=== PATIENT | male | born 1960 | race Caucasian/White ===

== ENCOUNTER 2022-06-14 10:29 | Inpatient (IN) | payer OTHER, SELFPAY ==
[2022-06-14] VITALS (14 sets, daily range): BP systolic 123–174; BP diastolic 54–121; PULSE 84–118; RESP 18–28; TEMP 36.5–37.5; O2SAT 91–94; BMI 31.2; BMI 36.4
--- NOTE | 2022-06-14 11:34 | CRLHL7_ITS ---
For Patients: As a result of the Century Cures Act, medical imaging exams and procedure reports are released immediately into your electronic medical record. You may view this report before your referring provider. If you have questions, please contact your health care provider. INDICATION: Dyspnea. TECHNIQUE: Chest 1 view. COMPARISON: None. FINDINGS: No focal consolidation, pleural effusion, or pneumothorax. Normal heart size and pulmonary vascularity. There is a 2.6 cm ovoid nodular opacity in the right hilum. Chronic appearing fracture of the left posterior 7th rib. IMPRESSION: 1. No acute cardiopulmonary findings. 2. Indeterminate 2.6 cm nodular opacity in the right hilum. This could be further evaluated with CT of the chest. Dictated by Janette Waddell MD @ 06/14/2022 12:50:53 PM (Electronically Signed)
--- NOTE | 2022-06-14 11:37 | ED.WEAKNESS ---
HPI - Weakness General Chief complaint: Weakness Stated complaint: Fall, right leg injury Time Seen by Provider: 06/14/22 11:23 History of Present Illness HPI Narrative: 61-year-old man presenting to the emergency department accompanied by his . Concern of increasing weakness and possible skin infection. History of the a cares. Three days ago started feeling unwell. Did vomit. Had diarrheal episode as well. Sounds like that has all past. He still has no appetite. Fell out of bed a few nights ago but did not sustain any injuries. Does have a history of COPD apparently and has not been using his nebulizations regularly. Denies a history of heart failure. Does have however venous stasis ulcers and receives home care for this. Due to progressive redness in his right leg in particular was recommended to be seen. I note him also to be tachycardic on initial exam. Denies a history of arrhythmias. No fevers here recently. No cough or cold symptoms. No abdominal pain. On exam I note him to resist exam little bit he says is always a little sensitive like that. Medications in the list provided by Mr. Woods include Pregabalin [id number] acid slab stripper Chlorthalidone Allergy med [id number] Latanoprost drops Acetaminophen Albuterol Wixela Related Data Home Medications Medication Instructions Recorded Confirmed acetaminophen 500 mg tablet 1,000 mg PO BID 06/14/22 06/14/22 albuterol sulfate 90 mcg/actuation 2 inh inhalation Q6H PRN 06/14/22 06/14/22 aerosol inhaler (Proventil HFA) chlorthalidone 25 mg tablet 12.5 mg PO DAILY 06/14/22 06/14/22 famotidine 10 mg tablet (Acid 10 mg PO BID 06/14/22 06/14/22 Controller) fluticasone 250 mcg-salmeterol 50 1 inh inhalation BID 06/14/22 06/14/22 mcg/dose blistr powdr for inhalation (Advair Diskus) latanoprost 0.005 % eye drops 1 drp ophthalmic (eye) HS 06/14/22 06/14/22 loratadine 10 mg tablet 10 mg PO DAILY 06/14/22 06/14/22 (Allerclear) pregabalin 75 mg capsule 75 - 150 mg PO BID 06/14/22 06/14/22 Allergies Allergy/AdvReac Type Severity Reaction Status Date / Time No Known Drug Allergies Allergy Verified 06/14/22 10:56 Review of Systems Status of ROS: Reports: 10 or more systems reviewed and unremarkable except as noted in History and below [facility] Medical History Chronic obstructive pulmonary disease Chronic pain due to injury Chronic venous hypertension w/ulcer and inflammation involv both sides Chronic venous insufficiency of lower extremity Gastroesophageal reflux disease History of tobacco use Hypertension Obesity Physical debility Skin graft rejection Surgical History History of appendectomy Family History Mother Diabetes Alcohol abuse Father Diabetes Heart attack Social History Highest level of school completed/degree received: GED or equivalent Smoking Status: Former smoker What tobacco products do you use: cigarettes Years smoked: 50 Smoking quit date/years: <= 15 years ago Do you use any of these nicotine containing products: None Second hand tobacco smoke exposure: Yes How often do you have a drink containing alcohol: monthly or less How many standard drinks containing alcohol do you have on a typical day: 1 or 2 How often do you have six or more drinks on one occasion: Never AUDIT-C Alcohol total score: 1 Non-prescribed substance use: denies use Caffeine: Yes (5 cokes a day) service: Yes Exam Narrative: Exam Narrative: Is pleasant. Fully alert. Appears tired. Mildly labored in his breathing. A little tachypneic as well. Head is atraumatic. Cranial nerves 2-12 intact. Oropharynx is sticky. Edentulous. Neck is supple without LA. no JVD Lungs with trace end-expiratory wheezing most audible in the right mid lung field. Good air movement throughout. Cardiovascular is tachycardic appears to be regular on auscultation a little distant. On monitor as I am examining him though AFib alert is going off. His rapid in the 1 teens Abdomen is overweight soft nontender though seems diffusely mildly sensitive-sounds like this is a chronic situation. No masses appreciated Extremities with changes consistent with venous stasis. Large ulcerations bilaterally with foam dressings in place and gauze wrap around that. There is erythema broadly over his right lower leg extending past the knee. Is sensitive to palpation. Present calor. Not so much induration. Const: Vital Signs, click to edit/add: Vital Signs - 24 hr 06/14/22 10:57 06/14/22 12:36 06/14/22 12:37 Temperature 97.9 F Pulse Rate 85 95 Pulse Rate [Pulse Oximeter] 98 Pulse Rate [Right Pulse Oximeter] Respiratory Rate 28 H Blood Pressure 132/72 Blood Pressure [Le ft Arm] Blood Pressure [Ri ght Upper Arm] 149/62 H Pulse Oximetry 91 91 91 Oxygen Delivery Me thod Room Air 06/14/22 13:00 06/14/22 13:02 06/14/22 13:30 Temperature Pulse Rate 84 88 89 Pulse Rate [Pulse Oximeter] Pulse Rate [Right Pulse Oximeter] Respiratory Rate Blood Pressure 149/79 H Blood Pressure [Le ft Arm] Blood Pressure [Ri ght Upper Arm] Pulse Oximetry 94 93 91 Oxygen Delivery Me thod 06/14/22 13:32 06/14/22 14:18 06/14/22 14:35 Temperature 97.7 F Pulse Rate 94 Pulse Rate [Pulse Oximeter] Pulse Rate [Right Pulse Oximeter] 88 Respiratory Rate 22 22 Blood Pressure 140/76 H Blood Pressure [Le ft Arm] 123/80 Blood Pressure [Ri ght Upper Arm] Pulse Oximetry 91 93 93 Oxygen Delivery Me thod Room Air Room Air 06/14/22 15:00 Temperature Pulse Rate Pulse Rate [Pulse Oximeter] Pulse Rate [Right Pulse Oximeter] Respiratory Rate 22 Blood Pressure Blood Pressure [Le ft Arm] Blood Pressure [Ri ght Upper Arm] Pulse Oximetry Oxygen Delivery Me thod Documenting provider has reviewed patient's vital signs: yes Course Course Hospital Course: Will be initiating IVs and blood cultures obtained. Primary suspicion is cellulitis with potential sepsis. Possible new onset AFib with RVR. Pending EKG. I would anticipate admission at this point. Reevaluation(s) Reevaluation #1: EKG actually with a sinus tachycardia. See below. Vital Signs Vital signs: Initial Vital Signs Temperature 97.9 F 06/14/22 10:57 Temperature Source Temporal Artery Scan 06/14/22 10:57 Pulse Rate 98 06/14/22 10:57 Pulse Rhythm 06/14/22 10:57 Respiratory Rate 28 H 06/14/22 10:57 Blood Pressure 149/62 H 06/14/22 10:57 Blood Pressure Mean 91 06/14/22 10:57 Blood Pressure Position Supine 06/14/22 10:57 Pulse Oximetry 91 06/14/22 10:57 Oxygen Delivery Method 06/14/22 10:57 Vital Signs Temperature 97.9 F 06/14/22 10:57 Pulse Rate 98 06/14/22 10:57 Respiratory Rate 28 H 06/14/22 10:57 Blood Pressure 149/62 H 06/14/22 10:57 Pulse Oximetry 91 06/14/22 10:57 Oxygen Delivery Method 06/14/22 10:57 Temperature 99.5 F 06/14/22 19:00 Pulse Rate 93 06/14/22 19:00 Respiratory Rate 20 06/14/22 19:00 Blood Pressure 132/85 06/14/22 19:00 Pulse Oximetry 92 06/14/22 19:00 Oxygen Delivery Method 06/14/22 19:00 MDM - Weakness Medical Records Attestation: I reviewed the patient's medical records. Lab Data Attestation: I reviewed the patient's lab results. Labs: Lab Results 06/14/22 06/14/22 06/14/22 Range/Units 11:36 12:00 12:00 WBC 18.77 H (4.50-11.00) K/uL RBC 4.47 (4.30-5.90) m/uL Hgb 11.9 L (13.5-17.5) gm/dL Hct 38.3 (37.0-53.0) % MCV 86 (80-100) fL MCH 27 (26-34) pg MCHC 31 L (32-36) gm/dL RDW Coeff of Alice 17.9 H (11.5-15.5) % Plt Count 296 (140-440) K/uL Neut % (Auto) 82.4 H (42.0-72.0) % Lymph % (Auto) 8.7 L (20-44) % [place] % (Auto) 7.5 (0.0-11.0) % Eos % (Auto) 0.2 (0.0-7.0) % Baso % (Auto) 0.5 (0.0-3.0) % Neut # (Auto) 15.50 H (1.7-7.0) K/uL Lymph # (Auto) 1.60 (0.90-2.90) K/uL [place] # (Auto) 1.40 H (0.00-0.90) K/UL Eos # (Auto) 0.00 (0.00-0.50) K/uL Baso # (Auto) 0.10 (0.00-0.30) K/uL Abs Immat Gran (auto) 0.14 (0.00-0.30) K/uL INR 1.20 H (0.91-1.10) VBG pH (7.32-7.43) VBG pCO2 (40-50) mmHG VBG pO2 (25-47) mmHG VBG HCO3 (21-28) mmol/L Sodium (135-149) mmol/L Potassium (3.6-5.1) mmol/L Chloride (96-114) mmol/L Carbon Dioxide (20-32) mmol/L BUN (7-30) mg/dL Creatinine (0.5-1.5) mg/dL Estimated Creat Clear Estimated GFR ml/min Glucose (60-115) mg/dL Venous Lactic Acid (Serial Order) Calcium (8.4-10.6) mg/dL Magnesium (1.5-2.6) mg/dL Total Bilirubin (0.1-1.5) mg/dL Direct Bilirubin (0.0-0.5) mg/dL AST (12-35) U/L ALT (4-50) U/L Alkaline Phosphatase (40-150) U/L Troponin I (0.01-0.04) ng/mL C-Reactive Protein (0.5-1.0) mg/dL NT-Pro-B Natriuret Pep (0-125) PG/mL Total Protein (6.0-8.3) g/dL Albumin (3.3-5.0) g/dL Procalcitonin (<0.50) ng/mL Urine Color Yellow (Yellow) Urine Appearance Clear (Clear) Urine pH 6.5 (5.0-8.5) Ur Specific [place] 1.015 (1.000-1.030) Urine Protein 2+ A (Negative) Urine Glucose (UA) Negative (Negative) Urine Ketones Negative (Negative) Urine Blood Trace-intact A (Negative) Urine Nitrite Negative (Negative) Urine Bilirubin 1+ A (Negative) Urine Urobilinogen 0.2 (0.2-1.0) Ur Leukocyte Esterase Negative (Negative) Urine RBC 0-2 (0-2) Urine WBC 0-2 (0-5) Ur Squamous Epith Cells Few (None-Few) Urine Bacteria None (None) Fine Granular Casts Few A (None) SARS-CoV-2 (PCR) (Negative) Influenza Type A (PCR) (Negative) Influenza Type B (PCR) (Negative) POC Troponin I (0.01-0.04) ng/ml 06/14/22 06/14/22 06/14/22 Range/Units 12:00 12:00 12:00 WBC (4.50-11.00) K/uL RBC (4.30-5.90) m/uL Hgb (13.5-17.5) gm/dL Hct (37.0-53.0) % MCV (80-100) fL MCH (26-34) pg MCHC (32-36) gm/dL RDW Coeff of Alice (11.5-15.5) % Plt Count (140-440) K/uL Neut % (Auto) (42.0-72.0) % Lymph % (Auto) (20-44) % [place] % (Auto) (0.0-11.0) % Eos % (Auto) (0.0-7.0) % Baso % (Auto) (0.0-3.0) % Neut # (Auto) (1.7-7.0) K/uL Lymph # (Auto) (0.90-2.90) K/uL [place] # (Auto) (0.00-0.90) K/UL Eos # (Auto) (0.00-0.50) K/uL Baso # (Auto) (0.00-0.30) K/uL Abs Immat Gran (auto) (0.00-0.30) K/uL INR (0.91-1.10) VBG pH (7.32-7.43) VBG pCO2 (40-50) mmHG VBG pO2 (25-47) mmHG VBG HCO3 (21-28) mmol/L Sodium 137 (135-149) mmol/L Potassium 2.9 L* (3.6-5.1) mmol/L Chloride 97 (96-114) mmol/L Carbon Dioxide 30 (20-32) mmol/L BUN 18 (7-30) mg/dL Creatinine 1.3 (0.5-1.5) mg/dL Estimated Creat Clear 71.32 Estimated GFR 63 ml/min Glucose 145 H (60-115) mg/dL Venous Lactic Acid (Serial Order) Calcium 9.4 (8.4-10.6) mg/dL Magnesium 2.2 (1.5-2.6) mg/dL Total Bilirubin 0.5 (0.1-1.5) mg/dL Direct Bilirubin 0.2 (0.0-0.5) mg/dL AST 27 (12-35) U/L ALT 15 (4-50) U/L Alkaline Phosphatase 118 (40-150) U/L Troponin I (0.01-0.04) ng/mL C-Reactive Protein 25.7 H (0.5-1.0) mg/dL NT-Pro-B Natriuret Pep 822 H (0-125) PG/mL Total Protein 8.4 H (6.0-8.3) g/dL Albumin 3.9 (3.3-5.0) g/dL Procalcitonin (<0.50) ng/mL Urine Color (Yellow) Urine Appearance (Clear) Urine pH (5.0-8.5) Ur Specific [place] (1.000-1.030) Urine Protein (Negative) Urine Glucose (UA) (Negative) Urine Ketones (Negative) Urine Blood (Negative) Urine Nitrite (Negative) Urine Bilirubin (Negative) Urine Urobilinogen (0.2-1.0) Ur Leukocyte Esterase (Negative) Urine RBC (0-2) Urine WBC (0-5) Ur Squamous Epith Cells (None-Few) Urine Bacteria (None) Fine Granular Casts (None) SARS-CoV-2 (PCR) Negative SARS-CoV-2 (Negative) Influenza Type A (PCR) Negative PCR FLU A (Negative) Influenza Type B (PCR) Negative PCR FLU B (Negative) POC Troponin I (0.01-0.04) ng/ml 06/14/22 06/14/22 06/14/22 Range/Units 12:00 12:00 12:00 WBC (4.50-11.00) K/uL RBC (4.30-5.90) m/uL Hgb (13.5-17.5) gm/dL Hct (37.0-53.0) % MCV (80-100) fL MCH (26-34) pg MCHC (32-36) gm/dL RDW Coeff of Alice (11.5-15.5) % Plt Count (140-440) K/uL Neut % (Auto) (42.0-72.0) % Lymph % (Auto) (20-44) % [place] % (Auto) (0.0-11.0) % Eos % (Auto) (0.0-7.0) % Baso % (Auto) (0.0-3.0) % Neut # (Auto) (1.7-7.0) K/uL Lymph # (Auto) (0.90-2.90) K/uL [place] # (Auto) (0.00-0.90) K/UL Eos # (Auto) (0.00-0.50) K/uL Baso # (Auto) (0.00-0.30) K/uL Abs Immat Gran (auto) (0.00-0.30) K/uL INR (0.91-1.10) VBG pH 7.495 H (7.32-7.43) VBG pCO2 40 (40-50) mmHG VBG pO2 55.4 H (25-47) mmHG VBG HCO3 31 H (21-28) mmol/L Sodium (135-149) mmol/L Potassium (3.6-5.1) mmol/L Chloride (96-114) mmol/L Carbon Dioxide (20-32) mmol/L BUN (7-30) mg/dL Creatinine (0.5-1.5) mg/dL Estimated Creat Clear Estimated GFR ml/min Glucose (60-115) mg/dL Venous Lactic Acid (Serial Order) Calcium (8.4-10.6) mg/dL Magnesium (1.5-2.6) mg/dL Total Bilirubin (0.1-1.5) mg/dL Direct Bilirubin (0.0-0.5) mg/dL AST (12-35) U/L ALT (4-50) U/L Alkaline Phosphatase (40-150) U/L Troponin I < 0.01 L (0.01-0.04) ng/mL C-Reactive Protein (0.5-1.0) mg/dL NT-Pro-B Natriuret Pep (0-125) PG/mL Total Protein (6.0-8.3) g/dL Albumin (3.3-5.0) g/dL Procalcitonin (<0.50) ng/mL Urine Color (Yellow) Urine Appearance (Clear) Urine pH (5.0-8.5) Ur Specific [place] (1.000-1.030) Urine Protein (Negative) Urine Glucose (UA) (Negative) Urine Ketones (Negative) Urine Blood (Negative) Urine Nitrite (Negative) Urine Bilirubin (Negative) Urine Urobilinogen (0.2-1.0) Ur Leukocyte Esterase (Negative) Urine RBC (0-2) Urine WBC (0-5) Ur Squamous Epith Cells (None-Few) Urine Bacteria (None) Fine Granular Casts (None) SARS-CoV-2 (PCR) (Negative) Influenza Type A (PCR) (Negative) Influenza Type B (PCR) (Negative) POC Troponin I 0.04 (0.01-0.04) ng/ml 06/14/22 Range/Units 12:26 WBC (4.50-11.00) K/uL RBC (4.30-5.90) m/uL Hgb (13.5-17.5) gm/dL Hct (37.0-53.0) % MCV (80-100) fL MCH (26-34) pg MCHC (32-36) gm/dL RDW Coeff of Alice (11.5-15.5) % Plt Count (140-440) K/uL Neut % (Auto) (42.0-72.0) % Lymph % (Auto) (20-44) % [place] % (Auto) (0.0-11.0) % Eos % (Auto) (0.0-7.0) % Baso % (Auto) (0.0-3.0) % Neut # (Auto) (1.7-7.0) K/uL Lymph # (Auto) (0.90-2.90) K/uL [place] # (Auto) (0.00-0.90) K/UL Eos # (Auto) (0.00-0.50) K/uL Baso # (Auto) (0.00-0.30) K/uL Abs Immat Gran (auto) (0.00-0.30) K/uL INR (0.91-1.10) VBG pH (7.32-7.43) VBG pCO2 (40-50) mmHG VBG pO2 (25-47) mmHG VBG HCO3 (21-28) mmol/L Sodium (135-149) mmol/L Potassium (3.6-5.1) mmol/L Chloride (96-114) mmol/L Carbon Dioxide (20-32) mmol/L BUN (7-30) mg/dL Creatinine (0.5-1.5) mg/dL Estimated Creat Clear Estimated GFR ml/min Glucose (60-115) mg/dL Venous Lactic Acid (Serial Order) Calcium (8.4-10.6) mg/dL Magnesium (1.5-2.6) mg/dL Total Bilirubin (0.1-1.5) mg/dL Direct Bilirubin (0.0-0.5) mg/dL AST (12-35) U/L ALT (4-50) U/L Alkaline Phosphatase (40-150) U/L Troponin I (0.01-0.04) ng/mL C-Reactive Protein (0.5-1.0) mg/dL NT-Pro-B Natriuret Pep (0-125) PG/mL Total Protein (6.0-8.3) g/dL Albumin (3.3-5.0) g/dL Procalcitonin 6.33 H (<0.50) ng/mL Urine Color (Yellow) Urine Appearance (Clear) Urine pH (5.0-8.5) Ur Specific [place] (1.000-1.030) Urine Protein (Negative) Urine Glucose (UA) (Negative) Urine Ketones (Negative) Urine Blood (Negative) Urine Nitrite (Negative) Urine Bilirubin (Negative) Urine Urobilinogen (0.2-1.0) Ur Leukocyte Esterase (Negative) Urine RBC (0-2) Urine WBC (0-5) Ur Squamous Epith Cells (None-Few) Urine Bacteria (None) Fine Granular Casts (None) SARS-CoV-2 (PCR) (Negative) Influenza Type A (PCR) (Negative) Influenza Type B (PCR) (Negative) POC Troponin I (0.01-0.04) ng/ml ECG Data Attestation: I personally reviewed and interpreted this ECG as follows: (Sinus tachycardia rate of 114, PACs) Critical Care Time Critical Care Time Critical Care Time: Yes Attestation: The patient required my highest level preparedness to intervene emergently and I personally spent this critical care time directly and personally managing the patient. This critical care time included: Obtaining a history; Examining the patient; Pulse oximetry; Ordering and reviewing of studies; Arranging urgent treatment with development of a management plan; Evaluation of patients response to treatment; Frequent reassessment discussions with other providers. This critical care time was performed to assess and manage the high probability of imminent life-threatening deterioration that could result in multiorgan failure. It was exclusive of separate billable procedures and treating other patients and teaching time. Total Critical Care Time in Minutes: 45 Discharge Plan Discharge Clinical Impression: Cellulitis, Sepsis Patient Disposition: Admitted As Inpatient Condition: Stable
[2022-06-14 12:19] LABS: HCO3 VBG 31 mmol/L (21-28); PCO2 VBG 40 mmHG (40-50); PO2 VBG 55.4 mmHG (25-47); Troponin, Point-of-Care* 0.04 ng/ml (0.01-0.04); pH VBG 7.495 (7.32-7.43)
[2022-06-14 12:21] LABS: Basophils Percent Auto 0.5 % (0.0-3.0); Eosinophils Percent Auto 0.2 % (0.0-7.0); Hematocrit 38.3 % (37.0-53.0); Hemoglobin* 11.9 gm/dL (13.5-17.5); Immature Granulocytes Abs Auto 0.14 K/uL (0.00-0.30); Lactate Sepsis w/Reflex* 1.4 mmol/L (0.5-1.9); Lymphocytes Percent Auto 8.7 % (20-44); Mean Corpuscular HGB Conc 31 gm/dL (32-36); Mean Corpuscular Hemoglobin 27 pg (26-34); Mean Corpuscular Volume 86 fL (80-100); Monocytes Percent Auto 7.5 % (0.0-11.0); Neutrophils Percent Auto 82.4 % (42.0-72.0); Platelet Count* 296 K/uL (140-440); RDW Coefficient of Variation % 17.9 % (11.5-15.5); Red Blood Count 4.47 m/uL (4.30-5.90); White Blood Count* 18.77 K/uL (4.50-11.00)
[2022-06-14 12:23] LABS: Slide Review Reflex No
[2022-06-14] MEDS: 0.9 % SODIUM CHLORIDE 1000 ml 1,000 ML IV (12:33)
[2022-06-14 12:36] LABS: Albumin* 3.9 g/dL (3.3-5.0); Chloride* 97 mmol/L (96-114)
[2022-06-14 12:37] LABS: Sodium* 137 mmol/L (135-149)
[2022-06-14 12:39] LABS: Alkaline Phosphatase* 118 U/L (40-150); Aspartate Amino Transferase* 27 U/L (12-35); Bilirubin Direct* 0.2 mg/dL (0.0-0.5); Bilirubin Total* 0.5 mg/dL (0.1-1.5); Carbon Dioxide* 30 mmol/L (20-32); Creatinine* 1.3 mg/dL (0.5-1.5); Est. Creatinine Clearance* 71.32; Estimated Glomerular Filt Rate 63 ml/min; Total Protein* 8.4 g/dL (6.0-8.3)
[2022-06-14 12:40] LABS: Alanine Aminotransferase* 15 U/L (4-50); Blood Urea Nitrogen* 18 mg/dL (7-30); Calcium* 9.4 mg/dL (8.4-10.6); Glucose* 145 mg/dL (60-115); Magnesium* 2.2 mg/dL (1.5-2.6)
[2022-06-14 12:43] LABS: Potassium* 2.9 mmol/L (3.6-5.1)
[2022-06-14 12:49] LABS: NT Pro B Type NatriureticPept* 822 PG/mL (0-125)
[2022-06-14 12:52] LABS: Troponin I* < 0.01 ng/mL (0.01-0.04)
[2022-06-14 12:53] LABS: C Reactive Protein* 25.7 mg/dL (0.5-1.0)
--- NOTE | 2022-06-14 13:02 | W.PC.EDHO ---
Primary Language: Preferred Language: Orientation Status: [] Alert & Oriented [] Slight Confusion [] Known Dx Dementia Transfers By: [] Assist of 1 [] Assist of 2 [] Lift Active Medications Discontinued Medications Generic Name Dose Route Start Last Admin Trade Name Jessee PRN Reason Stop Dose Admin Sodium Chloride 1,000 mls @ 1,000 mls/hr 06/14/22 11:34 06/14/22 12:33 0.9 % Sodium Chloride 1000 Ml IV 06/14/22 12:33 1,000 mls/hr .Q1H ONE Administration Description of Symptoms ED Triage Present [facility] to [facility]. was ok to be seen here. is with Eugenie, his s/o. does have venous stasis and home care. has had increasing left red pain, swelling and redness. the redness extending upward past knee. had fallen on friday-friday. has been in bed since friday with increased in weakness. was ill with vomiting on friday. has poor appetite. ED Triage Date of Onset of 06/11/22 Symptoms Pain Pain Description [Right Leg] Sharp,Dull, Achy Pain Intensity [Right Leg] 5 Pain Scale Used [Right Leg] Numeric (1 - 10) Oxygen Administration Pulse Oximetry 91 Oxygen Delivery Method Room Air
[2022-06-14 13:15] LABS: Procalcitonin* 6.33 ng/mL (<0.50)
--- NOTE | 2022-06-14 13:38 | ED.NURSE ---
Report to [facility]
[2022-06-14 13:40] LABS: PCR FLU A Negative PCR FLU A (Negative); PCR FLU B Negative PCR FLU B (Negative)
[2022-06-14 13:41] LABS: SARS PCR* Negative SARS-CoV-2 (Negative)
--- NOTE | 2022-06-14 13:52 | ED.NURSE ---
Pt and belongings brought to room 258 via WC
[2022-06-14 14:12] LABS: Prothrombin Time 15.6 Seconds
--- NOTE | 2022-06-14 16:16 | CRLHL7_ITS ---
For Patients: As a result of the Century Cures Act, medical imaging exams and procedure reports are released immediately into your electronic medical record. You may view this report before your referring provider. If you have questions, please contact your health care provider. INDICATION: Sinus pain and swelling TECHNIQUE: Ultrasound venous duplex lower right extremity. Compression venous exam was performed using bardales-scale, color Doppler, and spectral Doppler imaging. COMPARISON: FINDINGS: Sonographic imaging demonstrates the right common femoral, deep femoral, superficial femoral, popliteal, proximal and mid posterior tibial and greater saphenous and the contralateral left common femoral veins to be fully compressible with normal color Doppler blood flow. The distal posterior tibial vein is not well visualized. IMPRESSION: Normal right lower extremity venous ultrasound, no sign of deep venous thrombosis. The distal posterior tibial vein is not well visualized. Dictated by Shay Joe MD @ 06/14/2022 5:34:51 PM Dictated by: Shay Joe MD @ 06/14/2022 17:34:55 (Electronically Signed)
--- NOTE | 2022-06-14 16:29 | PM.IMHP1 ---
Hospitalist- H&P: HPI History of Present Illness Time Seen by Provider: 15:30 Date Seen: 06/14/22 Chief complaint: Weak, fall, right leg red, swollen, hot Narrative: Shay Woods is a 61 year old man who was in his usual state of health up until this past Friday, 3 days ago. When he woke up on Friday he felt weak and sleepy. He was on bed much the day. His girlfriend said he could hardly speak. They hope that maybe he would get better and so he slept much of the day. By Friday he felt a little better. His home health care nurse visit him today and noticed his right leg and was red, swollen, and hot. This is unusual for him. He does have chronic bilateral lower extremity venous insufficiency ulcers. This inflammatory change that his home healthcare nurse noted today is new. He has had no fevers, rigors, diaphoresis. Has felt cold and unable to warm up at times. His mentation has been slower than usual, described as being very tired and not interacting. He has had little oral intake over the last 2-3 days. Has home healthcare nurses attending to his chronic venous stasis ulcers twice a week. Receives his wound cares through the [facility] in [place]. Receives all his other medical cares at the [facility] in [place] as well. Review of Systems Status of ROS: Reports: 10 or more systems reviewed and unremarkable except as noted in History and below Narrative: Denies angina, anginal equivalent, syncope, near syncope, nausea, vomiting, cough that is any different from baseline, dyspnea at rest, paroxysmal nocturnal dyspnea, orthopnea. Does have COPD and continues to take his medications and states he has baseline at that. Has not had any unusual change in this. Denies any wheezing. Denies nausea or vomiting. Denies abdominal pain or any other unusual pain other than his chronic bilateral lower extremity pain. States bowel and and bladder function are stable. Denies dysuria, urgency, frequency, hematuria. Denies diarrhea or constipation. Has been increasingly sleepy and weak over the last few days. Yesterday he was attempting to get out of bed to go to the bathroom and he fell to the floor. He was able to get up. Had no injury that he is aware of on the 1 hand, on the other hand he notes that his right foot is more swollen and painful as well. Does not know how he acquired that. No other injuries. Denies loss of consciousness. Denies striking his head. [facility] Medical History Chronic obstructive pulmonary disease Chronic pain due to injury Chronic venous hypertension w/ulcer and inflammation involv both sides Chronic venous insufficiency of lower extremity Gastroesophageal reflux disease History of tobacco use Hypertension Obesity Physical debility Skin graft rejection Surgical History History of appendectomy Family History Mother Diabetes Alcohol abuse Father Diabetes Heart attack Social History Highest level of school completed/degree received: GED or equivalent Smoking Status: Former smoker What tobacco products do you use: cigarettes Years smoked: 50 Smoking quit date/years: <= 15 years ago Do you use any of these nicotine containing products: None Second hand tobacco smoke exposure: Yes How often do you have a drink containing alcohol: monthly or less How many standard drinks containing alcohol do you have on a typical day: 1 or 2 How often do you have six or more drinks on one occasion: Never AUDIT-C Alcohol total score: 1 Non-prescribed substance use: denies use Caffeine: Yes (5 cokes a day) service: Yes Meds Home Medications and Allergies Home Medications Medication Instructions Recorded Confirmed Type acetaminophen 500 mg tablet 1,000 mg PO BID 06/14/22 06/14/22 History albuterol sulfate 90 mcg/actuation 2 inh inhalation Q6H PRN 06/14/22 06/14/22 History aerosol inhaler (Proventil HFA) chlorthalidone 25 mg tablet 12.5 mg PO DAILY 06/14/22 06/14/22 History famotidine 10 mg tablet (Acid 10 mg PO BID 06/14/22 06/14/22 History Controller) fluticasone 250 mcg-salmeterol 50 1 inh inhalation BID 06/14/22 06/14/22 History mcg/dose blistr powdr for inhalation (Advair Diskus) latanoprost 0.005 % eye drops 1 drp ophthalmic (eye) HS 06/14/22 06/14/22 History loratadine 10 mg tablet 10 mg PO DAILY 06/14/22 06/14/22 History (Mitesh) pregabalin 75 mg capsule 75 - 150 mg PO BID 06/14/22 06/14/22 History Allergies Allergy/AdvReac Type Severity Reaction Status Date / Time No Known Drug Allergies Allergy Verified 06/14/22 10:56 Exam Narrative: Exam Narrative: Awake, alert, oriented to self, place, time, and situation. Articulate, cooperative. Friendly. His girlfriend indicates this is the best that she has seen him in the last 2 days. Hearing and vision are grossly normal. Dentition in fair repair. Dry buccal mucosa. Midline nasal septum. Neck is supple. Midline trachea number thyroid. No JVD, hepatojugular reflux, or carotid bruits. No lymphadenopathy. Lungs are clear to auscultation without wheezing, rhonchi, or rales. Chest wall excursions are full. No CVA tenderness. Heart tones with regular rhythm, normal S1-S2, no murmur, gallop, or rub. PMI is not laterally displaced. Abdomen with active bowel sounds, soft, nontender. Obese. No rebound or guarding. Capillary refill of fingers less than 3 seconds. Palpable pulses upper and lower extremities. Right leg is quite swollen compared to the left. Circumference around the right calf is 47 cm. Circumference around the left calf is 44 cm. Redness on the right leg extends from the foot all the way up to the mid thigh. It is quite warm to touch particularly around foot and distal saul. Right foot is deeply red, possibly ecchymotic, and swollen as well. Right foot is rather tender to touch. I examined the wounds bilaterally and they are clean without evidence of active infection in the wound bed itself. No focal motor neurologic deficits. Const: Vital Signs, click to edit/add: Vital Signs - 24 hr 06/14/22 10:57 06/14/22 12:36 06/14/22 12:37 Temperature 97.9 F Pulse Rate 85 95 Pulse Rate [Pulse Oximeter] 98 Pulse Rate [Right Pulse Oximeter] Respiratory Rate 28 H Blood Pressure 132/72 Blood Pressure [Le ft Arm] Blood Pressure [Ri ght Upper Arm] 149/62 H Pulse Oximetry 91 91 91 Oxygen Delivery Me thod Room Air 06/14/22 13:00 06/14/22 13:02 06/14/22 13:30 Temperature Pulse Rate 84 88 89 Pulse Rate [Pulse Oximeter] Pulse Rate [Right Pulse Oximeter] Respiratory Rate Blood Pressure 149/79 H Blood Pressure [Le ft Arm] Blood Pressure [Ri ght Upper Arm] Pulse Oximetry 94 93 91 Oxygen Delivery Me thod 06/14/22 13:32 06/14/22 14:18 06/14/22 14:35 Temperature 97.7 F Pulse Rate 94 Pulse Rate [Pulse Oximeter] Pulse Rate [Right Pulse Oximeter] 88 Respiratory Rate 22 22 Blood Pressure 140/76 H Blood Pressure [Le ft Arm] 123/80 Blood Pressure [Ri ght Upper Arm] Pulse Oximetry 91 93 93 Oxygen Delivery Me thod Room Air Room Air 06/14/22 15:00 Temperature Pulse Rate Pulse Rate [Pulse Oximeter] Pulse Rate [Right Pulse Oximeter] Respiratory Rate 22 Blood Pressure Blood Pressure [Le ft Arm] Blood Pressure [Ri ght Upper Arm] Pulse Oximetry Oxygen Delivery Me thod Documenting provider has reviewed patient's vital signs: yes Hospitalist - H&P: Result Labs Labs: Short CBC 06/14/22 Range/Units 12:00 WBC 18.77 H (4.50-11.00) K/uL Hgb 11.9 L (13.5-17.5) gm/dL Hct 38.3 (37.0-53.0) % Plt Count 296 (140-440) K/uL BMP 06/14/22 12:00 Sodium 137 Potassium 2.9 L* Chloride 97 Carbon Dioxide 30 BUN 18 Creatinine 1.3 Glucose 145 H Calcium 9.4 Cardiac Enzymes 06/14/22 Range/Units 12:00 Troponin I < 0.01 L (0.01-0.04) ng/mL Liver Function 06/14/22 Range/Units 12:00 Total Bilirubin 0.5 (0.1-1.5) mg/dL Direct Bilirubin 0.2 (0.0-0.5) mg/dL AST 27 (12-35) U/L ALT 15 (4-50) U/L Alkaline Phosphatase 118 (40-150) U/L Albumin 3.9 (3.3-5.0) g/dL ECG ECG interpretation date: 06/14/22 ECG interpretation time: 16:00 Prior ECG tracings: not available for review Interpretation: Sinus tachycardia, 1 teens. Incomplete right bundle branch block. Nonspecific ST changes. Imaging Chest x-ray: Attestation: I have reviewed the pertinent imaging results. Radiologist's impression: 1. No acute cardiopulmonary findings. 2. Indeterminate 2.6 cm nodular opacity in the right hilum. This could be further evaluated with CT of the chest. Assessment and Plan Assessment and plan (1) Cellulitis: Problem comment: Left leg Status: Acute (2) Sepsis: Status: Acute (3) Dehydration: Status: Acute (4) Hypokalemia due to excessive renal loss of potassium: Problem comment: Due to chlorthalidone use Status: Acute (5) Pulmonary nodule: Problem comment: 2.6 cm nodular opacity right hilum, needs further outpatient workup Status: Acute (6) Right foot pain: Problem comment: Status post fall 06/13/2022 Status: Acute (7) Chronic venous insufficiency of lower extremity: Status: Acute (8) Chronic venous hypertension w/ulcer and inflammation involv both sides: Status: Acute (9) Anemia: Status: Acute Plan 1. Reviewed my impression with the patient and his girlfriend, Eugenie. I recommended admission to the hospital for inpatient cares. 2. Patient designates his girlfriend, Eugenie, as his power of bankruptcy attorney for health should that be required. 3. Patient requests full resuscitation event of cardiopulmonary demise. 4. Monitor volume status including with lactate, weights and orthostatic vitals. Treat with IV fluids accordingly. 5. IV Zosyn 3.375 g IV q.6 hours 6. Monitor labs. 7. Potassium supplementation. Hold chlorthalidone for now. 8. Will need outpatient follow-up for pulmonary nodule noted on x-ray. 9. Ultrasound of right lower extremity to rule out deep venous thrombosis. 10. Right foot x-ray to rule out fracture from the fall. 11. Continue with the wound cares as he is presently on including Aquacel Ag to wound bed, cover with foam dressing, wrap with Kerlix. Additionally will add Tubigrip. 12. For now use venous thromboembolism prophylaxis with enoxaparin 40 mg at at bedtime. 13. Continue with supportive cares for his COPD and other conditions. 14. Will initiate anemia workup with reticulocyte count and iron studies. Of note his RDW was widened. 15. Patient girlfriend agreeable with above stated plans and recommendations.
[2022-06-14 16:45] LABS: Appearance Urine Clear (Clear); Bilirubin Urine 1+ (Negative); Blood Urine Trace-intact (Negative); Color Urine Yellow (Yellow); Glucose Urine Negative (Negative); Ketones Urine Negative (Negative); Leukocyte Esterase Urine Negative (Negative); Nitrite Urine Negative (Negative); Protein Urine 2+ (Negative); Specific Gravity Urine 1.015 (1.000-1.030); Urobilinogen Urine 0.2 (0.2-1.0); pH Urine 6.5 (5.0-8.5)
[2022-06-14 16:58] LABS: RBC Urine 0-2 (0-2); Squamous Epithelial Cell Urine Few (None-Few); WBC Urine 0-2 (0-5)
[2022-06-14 16:59] LABS: Fine Granular Casts Urine Few
--- NOTE | 2022-06-14 17:01 | CRLHL7_ITS ---
For Patients: As a result of the Cures Act, medical imaging exams and procedure reports are released immediately into your electronic medical record. You may view this report before your referring provider. If you have questions, please contact your health care provider. HISTORY: Right foot pain and swelling after fall. COMPARISON: None available. FINDINGS: The right foot is examined with AP, lateral, and oblique views. There is no sign of fracture or dislocation. There is mild swelling of the dorsal foot with no sign of fracture of the underlying metatarsal shafts. No degenerative disease is seen. IMPRESSION: No sign of acute osseous injury. Mild dorsal foot swelling. Dictated by Adi Uriostegui MD @ 06/14/2022 6:43:19 PM (Electronically Signed)
[2022-06-14] MEDS: POTASSIUM BICARB 25 MEQ EFFERVESCENT TAB PO ×2 (17:06→18:44)
[2022-06-14] MEDS: PIPERACILLIN/TAZOBACTAM 3.375 GM in 0.9 % SODIUM CHLORIDE Mini-bag 100 ML IVPB ×2 (17:06→22:01)
[2022-06-14] MEDS: 0.9 % SODIUM CHLORIDE 250 ml IV (17:07)
--- NOTE | 2022-06-14 18:58 | PC.NURSE ---
End of Shift: Patient pleasant and cooperative, patient arrived to floor at 1455. Patient vitally stable, lungs clear, BS WNL, IV intact. Patient SBA with walker. Patient with no activity pain 1-2/10, when walking pain is 10/10, no pain medication given. Right LE is reddened, inflammed, and hot to touch. Mepilex without border applied to bilateral LE wounds then wrapped with kerlix. Tubi steward/stewardess wine only on left leg as when attempting to apply tubi steward/stewardess wine to right leg patient had too much pain. Right lower extremity has 2 wound, each on lateral sides of leg. Left leg also has 2 wounds, each on lateral sides of leg.
[2022-06-14] MEDS: LATANOPROST 0.005% OPHTH 1 DROP EYE-BOTH (21:01)
[2022-06-14] MEDS: ENOXAPARIN 40 MG/0.4 ML INJ SUBCUT (21:01)
[2022-06-14] MEDS: PREGABALIN 75 MG CAPSULE 150 MG PO (21:02)
[2022-06-14] MEDS: FAMOTIDINE 20 MG TABLET PO (21:02)
[2022-06-14] MEDS: ACETAMINOPHEN 500 MG TABLET 1000 MG PO (21:02)
[2022-06-15] VITALS (8 sets, daily range): BP systolic 117–154; BP diastolic 62–99; PULSE 75–106; RESP 18–20; TEMP 36.6–37.7; O2SAT 90–99
[2022-06-15] MEDS: PIPERACILLIN/TAZOBACTAM 3.375 GM in 0.9 % SODIUM CHLORIDE Mini-bag 100 ML IVPB ×4 (04:07→21:59)
[2022-06-15] MEDS: LACTATED RINGERS 1000 ML 1,000 ML 125 ML IV (04:08)
--- NOTE | 2022-06-15 05:40 | PC.NURSE ---
[id number]: Patient cooperative with cares. Rates pain 0/10 at rest and 10/10 with movement. Controlled with scheduled medication, declined PRN pain medication. Verbalizing pain improvement while performing orthostatic BP stating for some reason my leg doesn't hurt as bad. A1,walker. Denies N/V/dizziness. R. leg inflamed, red, and hot to the touch. Patient removed Tubigrip on LLE and did not tolerate it on RLE.
[2022-06-15 06:59] LABS: HCO3 VBG 32 mmol/L (21-28); Lactate* 0.9 mmol/L (0.5-1.9); PCO2 VBG 49 mmHG (40-50); PO2 VBG 43.6 mmHG (25-47); pH VBG 7.429 (7.32-7.43)
[2022-06-15 07:13] LABS: Hematocrit 34.4 % (37.0-53.0); Hemoglobin* 10.6 gm/dL (13.5-17.5); Immature Reticulocyte Fraction 16.8 % (2.3-13.4); Mean Corpuscular HGB Conc 31 gm/dL (32-36); Mean Corpuscular Hemoglobin 27 pg (26-34); Mean Corpuscular Volume 86 fL (80-100); Platelet Count* 291 K/uL (140-440); Red Blood Count 3.98 m/uL (4.30-5.90); Reticulocyte Hemoglobin Equivi 20.5 pg (29.0-35.0); Reticulocyte Percent 0.8 % (0.5-2.0); Reticulocytes Absolute 0.03 # (0.03-0.08); White Blood Count* 15.83 K/uL (4.50-11.00)
[2022-06-15 07:18] LABS: Slide Review Reflex No
[2022-06-15 07:30] LABS: Chloride* 99 mmol/L (96-114); Potassium* 3.2 mmol/L (3.6-5.1); Sodium* 139 mmol/L (135-149)
[2022-06-15 07:33] LABS: Creatinine* 1.2 mg/dL (0.5-1.5); Est. Creatinine Clearance* 77.26; Estimated Glomerular Filt Rate 69 ml/min
[2022-06-15 07:34] LABS: Blood Urea Nitrogen* 20 mg/dL (7-30); Calcium* 8.7 mg/dL (8.4-10.6); Carbon Dioxide* 32 mmol/L (20-32); Glucose* 143 mg/dL (60-115)
[2022-06-15 07:37] LABS: C Reactive Protein* 8.9 mg/dL (0.5-1.0)
[2022-06-15 07:39] LABS: Iron* 25 ug/dL (49-181)
[2022-06-15 07:48] LABS: Percent Iron Saturation 14 % (20-50); Total Iron Binding Capacity 185 ug/dL (261-462)
[2022-06-15] MEDS: LORATADINE 10 MG TABLET PO (08:57)
[2022-06-15] MEDS: FAMOTIDINE 20 MG TABLET PO ×2 (08:57→20:37)
[2022-06-15] MEDS: PREGABALIN 75 MG CAPSULE PO (08:57)
[2022-06-15] MEDS: ACETAMINOPHEN 500 MG TABLET 1000 MG PO ×2 (08:57→20:37)
--- NOTE | 2022-06-15 14:23 | PM.IMPN1 ---
Progress Note: A&P Assessment and plan (1) Cellulitis: Problem details: Right leg Status: Acute Assessment and Plan: White count is improving. CRP much improved. Symptoms improving. Continue zosyn. Continue current wound dressings Wound care consult. (2) Right foot pain: Problem details: Status post fall 06/13/2022 Status: Acute (3) Sepsis: Status: Acute (4) Anemia: Problem details: Iron studies all low, suspect anemia of chronic disease. Status: Acute Assessment and Plan: Check B12 and folate levels. Trend Hgb. (5) Pulmonary nodule: Problem details: 2.6 cm nodular opacity right hilum, needs further outpatient workup Status: Acute Assessment and Plan: Will need outpatient work up. (6) Chronic venous hypertension w/ulcer and inflammation involv both sides: Status: Chronic (7) Dehydration: Status: Acute Assessment and Plan: Resolved. (8) Hypokalemia due to excessive renal loss of potassium: Problem details: Due to chlorthalidone use Status: Acute Assessment and Plan: Magnesium level wnl on admission. Replace orally. Recheck in morning. Plan VTE prophylaxis: Low-dose nightly enoxaparin and SCDs. Subjective Time Seen by Provider: 10:40 Date Seen: 06/15/22 Exam Narrative: Exam Narrative: General: No acute distress. Awake, alert, oriented x3. Extremely talkative. Sometimes has long tangents, difficult to tell if he is rambling. No pallor. No jaundice. Oropharynx: Clear. Mucous membranes moist. Cardiovascular: Regular rate and rhythm. No murmurs, gallops, or rubs. Respiratory: Clear to auscultation bilaterally. No wheezes or crackles. Abdomen: Bowel sounds present. Soft, nondistended, nontender. Extremities: Right foot is tender to touch. Patient says it is less tender than yesterday. Right foot and lower leg are more edematous than the left, 3+ edema on the right, 1+ on the left. Right foot and lower leg also have marcelle erythema. Wound edges are clean and there is no purulence or induration of wounds. Dorsalis pedis pulse on the left is 2+, on the right I am able to palpate it, but it is somewhat diminished secondary to edema. Const: Vital Signs, click to edit/add: Vital Signs - 24 hr 06/14/22 14:35 06/14/22 15:00 06/14/22 16:18 Temperature Pulse Rate [Right Pulse Oximeter] Pulse Rate [orthos tatic lying Right] Pulse Rate [orthos tatic sitting Righ t] Pulse Rate [orthos tatic standing Rig ht] Respiratory Rate 22 22 Blood Pressure [Le ft Arm] Blood Pressure [or thostatic lying Ri ght Arm] Blood Pressure [or thostatic sitting Right Arm] Blood Pressure [or thostatic standing Right Arm] Pulse Oximetry 93 93 Oxygen Delivery Me thod Room Air Room Air 06/14/22 18:03 06/14/22 19:00 06/14/22 23:00 Temperature 99.5 F 98.7 F Pulse Rate [Right Pulse Oximeter] 93 93 Pulse Rate [orthos tatic lying Right] 104 H Pulse Rate [orthos tatic sitting Righ t] 105 H Pulse Rate [orthos tatic standing Rig ht] 118 H Respiratory Rate 20 18 Blood Pressure [Le ft Arm] 132/85 124/54 L Blood Pressure [or thostatic lying Ri ght Arm] 174/90 H Blood Pressure [or thostatic sitting Right Arm] 151/94 H Blood Pressure [or thostatic standing Right Arm] 158/121 H Pulse Oximetry 92 92 Oxygen Delivery Me thod Room Air Room Air 06/15/22 03:00 06/15/22 05:16 06/15/22 07:00 Temperature 99.0 F 98.4 F Pulse Rate [Right Pulse Oximeter] 91 85 Pulse Rate [orthos tatic lying Right] 91 Pulse Rate [orthos tatic sitting Righ t] 94 Pulse Rate [orthos tatic standing Rig ht] 106 H Respiratory Rate 20 18 Blood Pressure [Le ft Arm] 141/63 H 143/79 H Blood Pressure [or thostatic lying Ri ght Arm] 141/63 H Blood Pressure [or thostatic sitting Right Arm] 154/84 H Blood Pressure [or thostatic standing Right Arm] 151/99 H Pulse Oximetry 93 91 Oxygen Delivery Me thod Room Air Room Air 06/15/22 07:00 06/15/22 11:00 Temperature 97.9 F Pulse Rate [Right Pulse Oximeter] 85 99 Pulse Rate [orthos tatic lying Right] Pulse Rate [orthos tatic sitting Righ t] Pulse Rate [orthos tatic standing Rig ht] Respiratory Rate 18 18 Blood Pressure [Le ft Arm] 117/62 Blood Pressure [or thostatic lying Ri ght Arm] Blood Pressure [or thostatic sitting Right Arm] Blood Pressure [or thostatic standing Right Arm] Pulse Oximetry 99 Oxygen Delivery Me thod Room Air Documenting provider has reviewed patient's vital signs: yes Labs Labs: Laboratory Results - last 24 hr 06/14/22 06/14/22 06/15/22 11:36 12:00 06:02 WBC 15.83 H RBC 3.98 L Hgb 10.6 L Hct 34.4 L MCV 86 MCH 27 MCHC 31 L Plt Count 291 Absolute Retic 0.03 Percent Retic 0.8 Immature Retic Fraction 16.8 H Retic Hgb Equivalent 20.5 L VBG pH VBG pCO2 VBG pO2 VBG HCO3 Sodium Potassium Chloride Carbon Dioxide BUN Creatinine Estimated Creat Clear Estimated GFR Glucose Lactate Venous Lactic Acid (Serial Order) Calcium Iron TIBC % Saturation C-Reactive Protein Urine Color Yellow Urine Appearance Clear Urine pH 6.5 Ur Specific [place] 1.015 Urine Protein 2+ A Urine Glucose (UA) Negative Urine Ketones Negative Urine Blood Trace-intact A Urine Nitrite Negative Urine Bilirubin 1+ A Urine Urobilinogen 0.2 Ur Leukocyte Esterase Negative Urine RBC 0-2 Urine WBC 0-2 Ur Squamous Epith Cells Few Urine Bacteria None Fine Granular Casts Few A 06/15/22 06/15/22 06/15/22 06:02 06:02 06:02 WBC RBC Hgb Hct MCV MCH MCHC Plt Count Absolute Retic Percent Retic Immature Retic Fraction Retic Hgb Equivalent VBG pH 7.429 VBG pCO2 49 VBG pO2 43.6 VBG HCO3 32 H Sodium 139 Potassium 3.2 L Chloride 99 Carbon Dioxide 32 BUN 20 Creatinine 1.2 Estimated Creat Clear 77.26 Estimated GFR 69 Glucose 143 H Lactate 0.9 Venous Lactic Acid (Serial Order) Calcium 8.7 Iron 25 L TIBC 185 L % Saturation 14 L C-Reactive Protein 8.9 H Urine Color Urine Appearance Urine pH Ur Specific [place] Urine Protein Urine Glucose (UA) Urine Ketones Urine Blood Urine Nitrite Urine Bilirubin Urine Urobilinogen Ur Leukocyte Esterase Urine RBC Urine WBC Ur Squamous Epith Cells Urine Bacteria Fine Granular Casts
--- NOTE | 2022-06-15 15:36 | PC.NURSE ---
WOUND CARE DONE TODAY TO RLE D/T DRESSING COMING LOOSE- VASHE SOLN. SOAKED GAUZE ON WOUNDS TO RLE, EXTRA LOOSE SKIN REMOVED FROM SURROUNDING SKIN. BLANCHABLE AREAS. COVERED WITH AQUACEL AG THEN NON BOARDER FOAM. WRAPPED WITH KERLIX. DRESSING NOT CHANGE TO LLE HOWEVER REINFORCED. PT REPORTS THESE ARE CHANGED QOD WITH HOME HEALTH. K+ BEING REPLACED AND LACTO ADDED. CONTINUE WITH ZOSYN. CELLULITIS IMPROVING AND PT AFEBRILE.
[2022-06-15] MEDS: POTASSIUM BICARB 25 MEQ EFFERVESCENT TAB PO ×3 (15:44→18:37)
[2022-06-15] MEDS: 0.9 % SODIUM CHLORIDE 250 ml IV (16:34)
[2022-06-15] MEDS: LACTOBACILLUS ACIDOPHILUS 1 TABLET 1 TAB PO (17:36)
[2022-06-15] MEDS: LATANOPROST 0.005% OPHTH 1 DROP EYE-BOTH (20:36)
[2022-06-15] MEDS: ENOXAPARIN 40 MG/0.4 ML INJ SUBCUT (20:37)
[2022-06-15] MEDS: PREGABALIN 75 MG CAPSULE 150 MG PO (20:37)
[2022-06-16 03:00] VITALS: BP 146/80; PULSE 86; RESP 20; TEMP 37.1; O2SAT 90
[2022-06-16] MEDS: SODIUM CHLORIDE 0.9 % (FLUSH) 10 ML SYRINGE 5 ML IVF ×2 (04:08→08:35)
[2022-06-16] MEDS: PIPERACILLIN/TAZOBACTAM 3.375 GM in 0.9 % SODIUM CHLORIDE Mini-bag 100 ML IVPB ×2 (04:08→10:11)
--- NOTE | 2022-06-16 05:50 | PC.NURSE ---
[id number]: Patient cooperative with cares. Pain controlled with scheduled medications. Redness and swelling in RLE within the outline. Patient verbalizes overall improvement with pain and movement. Independent in room with walker. Dressings to bilateral LE intact with small amount of old drainage.
[2022-06-16 07:00] VITALS: BP 138/82; PULSE 89; RESP 20; TEMP 36.8; O2SAT 92
[2022-06-16 07:11] LABS: Basophils Percent Auto 0.6 % (0.0-3.0); Eosinophils Percent Auto 2.4 % (0.0-7.0); Hematocrit 33.3 % (37.0-53.0); Hemoglobin* 10.2 gm/dL (13.5-17.5); Immature Granulocytes Abs Auto 0.25 K/uL (0.00-0.30); Lymphocytes Percent Auto 15.4 % (20-44); Mean Corpuscular HGB Conc 31 gm/dL (32-36); Mean Corpuscular Hemoglobin 27 pg (26-34); Mean Corpuscular Volume 88 fL (80-100); Platelet Count* 327 K/uL (140-440); RDW Coefficient of Variation % 18.3 % (11.5-15.5); White Blood Count* 15.66 K/uL (4.50-11.00)
[2022-06-16 07:25] LABS: Slide Review Reflex No
[2022-06-16 07:27] LABS: Chloride* 101 mmol/L (96-114)
[2022-06-16 07:28] LABS: Potassium* 3.1 mmol/L (3.6-5.1); Sodium* 142 mmol/L (135-149)
[2022-06-16 07:30] LABS: Creatinine* 1.2 mg/dL (0.5-1.5); Est. Creatinine Clearance* 77.26; Estimated Glomerular Filt Rate 69 ml/min
[2022-06-16 07:31] LABS: Blood Urea Nitrogen* 14 mg/dL (7-30); Calcium* 8.7 mg/dL (8.4-10.6); Carbon Dioxide* 33 mmol/L (20-32); Glucose* 110 mg/dL (60-115)
[2022-06-16 08:16] LABS: Vitamin B12* 268 pg/mL (243-894)
[2022-06-16] MEDS: ACETAMINOPHEN 500 MG TABLET 1000 MG PO (08:34)
[2022-06-16] MEDS: PREGABALIN 75 MG CAPSULE PO (08:34)
[2022-06-16] MEDS: POTASSIUM BICARB 25 MEQ EFFERVESCENT TAB PO ×2 (08:34→10:11)
[2022-06-16] MEDS: FAMOTIDINE 20 MG TABLET PO (08:34)
[2022-06-16] MEDS: LACTOBACILLUS ACIDOPHILUS 1 TABLET 1 TAB PO (08:34)
[2022-06-16] MEDS: LORATADINE 10 MG TABLET PO (08:34)
--- NOTE | 2022-06-16 11:48 | P.DS_ITS ---
DS: Providers Provider Time Seen by Provider: 08: Date Seen: 06/16/22 Date of admission: 06/14/22 16:18 Primary care physician: Not a Local Provider Admitting Clinician: Beatrice Gilman MD Consults: 06/15/22 14:40 Consult to Wound Care [CONS] Routine Comment: Consulting Provider: Laure Nguyen Attending Physician on discharge: Elsie Padgett MD Date of Discharge: 06/16/22 DS: Diagnosis Discharge Diagnosis (1) Cellulitis: Status: Acute Problem details: Right leg (2) Sepsis: Status: Acute (3) Dehydration: Status: Acute Problem details: Resolved (4) Chronic venous insufficiency of lower extremity: Status: Acute (5) Chronic venous hypertension w/ulcer and inflammation involv both sides: Status: Chronic (6) Hypokalemia due to excessive renal loss of potassium: Status: Acute Problem details: Due to chlorthalidone use - BP fair control off HCTZ. Holding HCTZ until seen by PCP. (7) Pulmonary nodule: Status: Acute Problem details: 2.6 cm nodular opacity right hilum, needs further outpatient workup (8) Right foot pain: Status: Acute Problem details: Status post fall 06/13/2022 (9) Anemia: Status: Acute Problem details: Iron studies all low, suspect anemia of chronic disease. B12 level wnl. Folate pending 06/16/22 - NH+C. DS: Summary Hospital Course Hospital Course: Note to primary care provider: Please follow-up regarding pulmonary nodule of 2.6 cm in the right hilum; he will need further outpatient workup. Patient had persistent hypokalemia in the hospital for which I have held hydrochlorothiazide and started oral potassium. Despite being off hydrochlorothiazide, blood pressure has had fair control in the hospital. I have discontinued hydrochlorothiazide, but this may be restarted with further potassium replacement if he needs such for blood pressure control or lower extremity edema. Also note that the folate level drawn here 06/16/2022 is still pending at the time of this dictation. Iron studies were low and B12 level was within normal limits, so I suspect anemia is secondary to chronic disease. oj Status at Discharge Functional status at discharge: uses cane/walker Time Spent with Patient Time attestation: Total time spent providing and/or coordinating discharge services: Time spent: Less than 30 minutes Exam Narrative: Exam Narrative: General: No acute distress. Awake, alert, oriented x3. No pallor. No jaundice. Oropharynx: Clear. Mucous membranes moist. Cardiovascular: Regular rate and rhythm. No murmurs, gallops, or rubs. Respiratory: Clear to auscultation bilaterally. No wheezes or crackles. Abdomen: Bowel sounds present. Soft, nondistended, nontender. Extremities: Right foot is less tender to touch. Erythema of right leg has r eceded significantly from yesterday. Right foot is still edematous and has marcelle erythema, although this has also receded from the ankle. Wounds are dressed and bandages are clean, dry, and intact. Const: Vital Signs, click to edit/add: Vital Signs - 24 hr 06/15/22 15:00 06/15/22 15:00 06/15/22 19:00 Temperature 98.1 F 99.8 F H Pulse Rate [Right Pulse Oximeter] 75 75 97 Respiratory Rate 18 18 20 Blood Pressure [Le ft Arm] 132/72 140/63 H Pulse Oximetry 92 90 Oxygen Delivery Me thod Room Air Room Air 06/15/22 21:00 06/15/22 22:17 06/16/22 03:00 Temperature 98.9 F 98.8 F Pulse Rate [Right Pulse Oximeter] 99 86 Respiratory Rate 20 20 20 Blood Pressure [Le ft Arm] 125/66 146/80 H Pulse Oximetry 92 90 90 Oxygen Delivery Me thod Room Air Room Air Room Air 06/16/22 07:00 06/16/22 07:00 Temperature 98.2 F Pulse Rate [Right Pulse Oximeter] 89 89 Respiratory Rate 20 Blood Pressure [Le ft Arm] 138/82 Pulse Oximetry 92 Oxygen Delivery Me thod Room Air Documenting provider has reviewed patient's vital signs: yes DS: Data Data Completed and Pending Completed studies during hospitalization: EKG from 06/14/2022 sinus tachycardia with premature atrial complexes, heart rate 114 beats per minute. Incomplete right bundle-branch block. Nonspecific ST abnormality. Ordering Physician: Shay Mata MD Date of Service: 06/14/22 Procedure(s): XR chest 1V portable Accession Number(s): [id number] cc: Shay Mata MD~ For Patients: As a result of the Century Cures Act, medical imaging exams and procedure reports are released immediately into your electronic medical record. You may view this report before your referring provider. If you have questions, please contact your health care provider. INDICATION: Dyspnea. TECHNIQUE: Chest 1 view. COMPARISON: None. FINDINGS: No focal consolidation, pleural effusion, or pneumothorax. Normal heart size and pulmonary vascularity. There is a 2.6 cm ovoid nodular opacity in the right hilum. Chronic appearing fracture of the left posterior 7th rib. IMPRESSION: 1. No acute cardiopulmonary findings. 2. Indeterminate 2.6 cm nodular opacity in the right hilum. This could be further evaluated with CT of the chest. Dictated by Janette Waddell MD @ 06/14/2022 12:50:53 PM (Electronically Signed) Ordering Physician: Canelo Hatch M.D. Date of Service: 06/14/22 Procedure(s): US venous LE RT Accession Number(s): [id number] cc: Canelo Hatch M.D.; Provider,Not a Local ~ For Patients: As a result of the Cures Act, medical imaging exams and procedure reports are released immediately into your electronic medical record. You may view this report before your referring provider. If you have questions, please contact your health care provider. INDICATION: Sinus pain and swelling TECHNIQUE: Ultrasound venous duplex lower right extremity. Compression venous exam was performed using bardales-scale, color Doppler, and spectral Doppler imaging. COMPARISON: FINDINGS: Sonographic imaging demonstrates the right common femoral, deep femoral, superficial femoral, popliteal, proximal and mid posterior tibial and greater saphenous and the contralateral left common femoral veins to be fully compressible with normal color Doppler blood flow. The distal posterior tibial vein is not well visualized. IMPRESSION: Normal right lower extremity venous ultrasound, no sign of deep venous thrombosis. The distal posterior tibial vein is not well visualized. Dictated by Shay Joe MD @ 06/14/2022 5:34:51 PM Dictated by: Shay Joe MD @ 06/14/2022 17:34:55 (Electronically Signed) Ordering Physician: Canelo Hatch M.D. Date of Service: 06/14/22 Procedure(s): XR foot RT min 3V Accession Number(s): [id number] cc: Canelo Hatch M.D.; Provider,Not a Local ~ For Patients: As a result of the Century Cures Act, medical imaging exams and procedure reports are released immediately into your electronic medical record. You may view this report before your referring provider. If you have questions, please contact your health care provider. HISTORY: Right foot pain and swelling after fall. COMPARISON: None available. FINDINGS: The right foot is examined with AP, lateral, and oblique views. There is no sign of fracture or dislocation. There is mild swelling of the dorsal foot with no sign of fracture of the underlying metatarsal shafts. No degenerative disease is seen. IMPRESSION: No sign of acute osseous injury. Mild dorsal foot swelling. Dictated by Adi Uriostegui MD @ 06/14/2022 6:43:19 PM (Electronically Signed) Labs on day of discharge: Labs from last 24 hours 06/16/22 06/16/22 06/16/22 05:56 05:56 05:56 WBC 15.66 H RBC 3.80 L Hgb 10.2 L Hct 33.3 L MCV 88 MCH 27 MCHC 31 L RDW Coeff of Alice 18.3 H Plt Count 327 Neut % (Auto) 73.0 H Lymph % (Auto) 15.4 L Dawson % (Auto) 7.0 Eos % (Auto) 2.4 Baso % (Auto) 0.6 Neut # (Auto) 11.40 H Lymph # (Auto) 2.40 Dawson # (Auto) 1.10 H Eos # (Auto) 0.40 Baso # (Auto) 0.10 Abs Immat Gran (auto) 0.25 Sodium 142 Potassium 3.1 L Chloride 101 Carbon Dioxide 33 H BUN 14 Creatinine 1.2 Estimated Creat Clear 77.26 Estimated GFR 69 Glucose 110 Calcium 8.7 Vitamin B12 268 RBC Fol Deya for Serum Pending Preliminary micro results at discharge 06/14/22 12:26 Blood Culture - Preliminary Blood NO GROWTH AFTER 24 HOURS 06/14/22 12:00 Blood Culture - Preliminary Blood NO GROWTH AFTER 24 HOURS Discharge Plan Discharge Disposition: Home, Self-Care Date of Admission: 06/14/22 16:18 Attending Provider on Discharge: Elsie Padgett Consulting Providers: Laure Nguyen Primary Care Provider: Provider,Not a Local Condition: Stable Anticipated Discharge Date/Time: 06/16/22 11:43 Discharge Medications: New potassium chloride 10 mEq Capsule, Extended Release 20 meq PO DAILY Qty: 20 0RF Lactobacillus acidophilus 0.5 mg (100 million cell) Tablet 1 tab PO TIDWM Qty: 30 0RF amoxicillin-pot clavulanate 875-125 mg tablet 1 tab PO BID Qty: 14 0RF Continued pregabalin 75 mg capsule 75 - 150 mg PO BID Label Comments: 75 MG IN AM 150 MG AT HS famotidine [Acid Controller] 10 mg tablet 10 mg PO BID loratadine [Allerclear] 10 mg tablet 10 mg PO DAILY latanoprost 0.005 % drops 1 drp ophthalmic (eye) HS Label Comments: BOTH EYES acetaminophen 500 mg tablet 1,000 mg PO BID albuterol sulfate [Proventil HFA] 90 mcg/actuation HFA aerosol inhaler 2 inh inhalation Q6H PRN fluticasone propion-salmeterol [Advair Diskus] 250-50 mcg/dose blister with device 1 inh inhalation BID Discontinued chlorthalidone 25 mg tablet 12.5 mg PO DAILY Discharge Orders: Discharge Order (Routine); Ordered 06/16/22 Ordered By: Elsie Padgett Patient Education: Potassium Chloride (By mouth), Amoxicillin/Clavulanate Potassium (By mouth), Probiotic (By mouth), Cellulitis (GEN), Hypokalemia (DC) Additional Instructions: Continue homecare for wound care/dressing changes. No change to previous wound care and dressings. Activity Level: Use Walker Discharge Diet: Regular Follow Up Appointments: Provider,Not a Local [Primary Care Provider] - (F/u with PCP on Friday) Forms: [facility] Info Instructions
--- NOTE | 2022-06-16 12:02 | PC.NURSE ---
Pt recieved IV zosyn this AM then IV pulled for D/C. Wound care to be done tomorrow with home health resuming, pt verbalized I have already reached out to let them know I will be home. Girlfriend at bedside for transport home. Pt ambulating steady with walker. Dressings reinforced with Kerlix.
--- NOTE | 2022-06-16 12:40 | PC.NURSE ---
d/c instructions reviewed with pt and SO. Pt denied any further questions at d/c. Discharged from m/s unit at 1225.
[2022-06-18 16:38] LABS: Folate, Serum 11.2 ng/mL (>=5.9)
== END 2022-06-16 12:25 | disposition home or self-care (01) | DRG 872 ==
LOC: ED 12:59 → MEDSURG 13:42
PROVIDERS: Family Medicine; Internal Medicine; Admitting Provider Family Medicine; Emergency Provider Family Medicine; Visit Provider Family Medicine
DX: A41.9 Sepsis, unspecified organism (principal); L03.115 Cellulitis of right lower limb; L97.822 Non-pressure chronic ulcer of other part of left lower leg with fat layer exposed; L97.812 Non-pressure chronic ulcer of other part of right lower leg with fat layer exposed; I87.333 Chronic venous hypertension (idiopathic) with ulcer and inflammation of bilateral lower extremity; I87.2 Venous insufficiency (chronic) (peripheral); R91.1 Solitary pulmonary nodule; E86.0 Dehydration; E87.6 Hypokalemia; T50.2X5A Adverse effect of carbonic-anhydrase inhibitors, benzothiadiazides and other diuretics, initial encounter; M79.671 Pain in right foot; J44.9 Chronic obstructive pulmonary disease, unspecified; D63.8 Anemia in other chronic diseases classified elsewhere; I45.10 Unspecified right bundle-branch block; K21.9 Gastro-esophageal reflux disease without esophagitis; Z68.36 Body mass index [BMI] 36.0-36.9, adult
CPT/HCPCS: 36415; 71045; 73630; 80048; 80076; 81001; 82607; 82746; 82803; 83540; 83550; 83605; 83735; 83880; 84145; 84484; 85025; 85027; 85045; 85610; 86140; 87040; 87631; 93005; 93971; 94761; 99284; 99285; 99291; A9270; J1650; J2543; J7030; J7050; J7120

== ENCOUNTER 2025-07-25 15:30 | Outpatient (CLI) | payer OTHER, SELFPAY | END 2025-07-25 15:31 | disposition home or self-care (01) | LOC: AMB 09-12 10:06 | PROVIDERS: Visit Provider Family Medicine | DX: M79.605 Pain in left leg (principal); L08.9 Local infection of the skin and subcutaneous tissue, unspecified | CPT/HCPCS: A0425; A0427 ==